=== PATIENT | female | born 1980 | race African-American/Black ===

== ENCOUNTER 2019-10-07 13:18 | Emergency (ER) | payer OTHER ==
[~2019-10-07] VITALS: Ht 162.6 cm; Wt 85.0 kg
[2019-10-07] MEDS ORDERED: IBUP800T19 PO (13:56)
[2019-10-07] MEDS ORDERED: CEPH-264 PO (13:56)
--- NOTE | 2019-10-07 13:58 | PHYS DOC ---
Past History Past Medical History: No Pertinent History Drug Use: Marijuana Adult General Chief Complaint Chief Complaint: SKIN PROBLEM HPI HPI Patient is an otherwise healthy 38-year-old female with no known medical issues presents for boil in pelvic region. This was first noticed by patient 3 days ago without any inciting event or trauma. Patient took x1 800 mg ibuprofen without significant relief in pain. Physical activity and palpation of this the site make worse. Patient has experienced "boils"like this in the past but they have never been this painful or in this region. Patient otherwise denies any concerning constitutional symptoms, no fever, no vaginal issues such as drainage or dysuria, first day of last menstrual period was September 29 Review of Systems Review of Systems Fourteen body systems of review of systems have been reviewed. See HPI for pertinent positives and negative responses, other patel all other systems are negative, non-pertinent or non-contributory Physical Exam Physical Exam Constitutional: Well developed, well nourished, no acute distress, non-toxic appearance. HENT: Normocephalic, atraumatic, bilateral external ears normal, oropharynx moist, no oral exudates, nose normal. Eyes: PERRLA, EOMI, conjunctiva normal, no discharge. Neck: Normal range of motion, no tenderness, supple, no stridor. Cardiovascular:Heart rate regular, sinus rhythm, no murmurs rubs or gallops Lungs & Thorax: Bilateral breath sounds clear to auscultation Abdomen: Bowel sounds normal, soft, no tenderness, no masses, no pulsatile masses. Nonsurgical abdomen, no peritoneal signs Skin: Warm, dry, no rash. Small 1 x 1 cm draining abscess on external left labia. No palpable crepitus appreciated, mild erythema and skin irritation around site of drainage, minimal exudate able to be drained, no streaking. Back: No tenderness, no CVA tenderness. Extremities: No tenderness, no cyanosis, no clubbing, ROM intact, no edema. Neurologic: Alert and oriented X 3, grossly normal motor & sensory function, no focal deficits noted. Psychologic: Affect normal, judgement normal, mood normal. EKG EKG [] Radiology/Procedures Radiology/Procedures [] Course & Med Decision Making Course & Med Decision Making Patient seen by myself on immediate ED arrival Vital signs stable, grossly well-appearing Comprehensive history and physical exam consistent with diagnosis of simple abscess of external left labia No concerning findings for emergent surgical 100 prevention such as Monserrat's gangrene, necrotizing fasciitis, versus other etc. Patient has been providing supportive care to her self in the form of NSAIDs for pain control and soaking lesion in warm baths, I recommended she continue this I will prescribe ibuprofen 800 mg for as needed pain control. I have advised continued use of warm compresses and warm water soaks. I have prescribed antibiotics for mild simple cellulitis overlying high risk abscess region, no indication for I&D at this time Strict return precautions discussed in detail with good understanding by patient, all questions and concerns addressed prior to ED departure Patient does not have PCP, gave her resources of local PCPs accepting new patients and advised her to establish care for continuity of care in outpatient setting. Advised patient to follow-up with PCP in upcoming 1 to 14 days for ER follow-up Adrianna Disclaimer Adrianna Disclaimer This electronic medical record was generated, in whole or in part, using a voice recognition dictation system. Departure Departure: Impression: Primary Impression: Labial abscess Disposition: 01 HOME/RESIDENCE PRIOR TO ADM Condition: STABLE Referrals: PCP,NO (PCP) Patient Instructions: Abscess, Care After, Vulvar Abscess, [id number] Additional Instructions: You were evaluated in the Emergency Department for an abscess. You should soak the area in warm water for 20-30 minutes 3-4 times daily. Contact your doctor when the abscess comes to a head (looks like it is almost ready to pop open) and needs to be drained. Please keep the areas surrounding the abscess clean and dry. Take the ant ibiotics prescribed to you in full as directed. You have been provided resources of local primary care physicians in the area t hat are accepting new patients, I highly recommend you call and establish care with 1 of the providers of your choice for ER follow-up and continuity of care in outpatient setting Return to the Emergency Department if you experience worsening pain, persistent fevers greater than 100.4, an increase in area of redness, increased tenderness/warmth around the abscess, foul smelling discharge from the abscess, Scripts Cephalexin (KEFLEX) 500 Mg Capsule 500 MG PO QID for ABSCESS for 5 Days, #20 TAB Prov: JO ANN OSWALD DO 10/07/19 Ibuprofen (IBUPROFEN) 800 Mg Tablet 1 TAB PO TID for PAIN, #30 TAB Prov: JO ANN OSWALD DO 10/07/19 Justification of Admission: Justification of Admission: Justification of Admission Dx: N/A JO ANN OSWALD DO Oct 07, 2019 13:58
[2019-10-07 14:05] VITALS: BP 130/82
== END 2019-10-07 14:18 | disposition home or self-care (01) ==
LOC: ER 13:18
DX: N76.4 Abscess of vulva (principal)
CPT/HCPCS: 99283